=== PATIENT | female | born 1990 | race African-American/Black ===

== ENCOUNTER 2023-11-18 15:35 | Emergency (ER) | payer BC ==
[~2023-11-18] VITALS: Ht 160 cm; Wt 52.2 kg
[2023-11-18 15:35] VITALS: BP_SYST 108; PULSE 100; RESP 18; TEMP 99.3; O2SAT 99
[2023-11-18 16:45] LABS: BASOPHILS # (AUTO) 0.1 K/uL (0.0-0.2); BASOPHILS % (AUTO) 1.4 % (0.0-2.0); EOSINOPHILS # (AUTO) 0.2 K/uL (0.0-0.4); EOSINOPHILS % (AUTO) 3.8 % (0.0-4.0); HEMATOCRIT 23.2 % (36-48); HEMOGLOBIN 7.2 g/dL (12.0-16.0); LYMPHOCYTES # (AUTO) 2.4 K/uL (1.0-5.5); LYMPHOCYTES % (AUTO) 38.8 % (20.5-51.5); MEAN CORPUSCULAR HEMOGLOBIN 21 pg (27-31); MEAN CORPUSCULAR HGB CONC 31 % (32-36); MEAN CORPUSCULAR VOLUME 68 fL (79.0-98.0); MONOCYTES # (AUTO) 0.6 K/uL (0.0-1.0); MONOCYTES % (AUTO) 9.9 % (1.7-9.3); NEUTROPHILS # (AUTO) 2.9 K/uL (1.8-7.7); NEUTROPHILS % (AUTO) 46.1 % (40.0-70.0); PLATELET COUNT (AUTO) 312 K/uL (130-430); RED CELL DISTRIBUTION WIDTH 24.7 % (9.0-15.0); WHITE BLOOD COUNT (AUTO) 6.3 K/uL (4.8-10.8)
[2023-11-18 16:55] LABS: CALCIUM 8.3 mg/dL (8.4-11.0); CREATININE 0.99 mg/dL (0.55-1.30); POTASSIUM 4.1 mmol/L (3.5-5.1)
[2023-11-18 16:57] LABS: ANISOCYTOSIS 2+; HYPOCHROMASIA 1+; PROTHROMBIN TIME 10.1 SECS (9.5-12.5)
[2023-11-18 16:58] LABS: OVALOCYTES FEW; TARGET CELLS FEW
[2023-11-18] MEDS ORDERED: DIPHENHYDRAMINE HCL 50 MG CAPSULE PO ONE (17:30)
[2023-11-18] MEDS: DIPHENHYDRAMINE HCL 12.5 MG/5 ML UDC PO ONE (17:39)
[2023-11-18 18:13] VITALS: BP_SYST 108; PULSE 100; RESP 18; TEMP 99.3; O2SAT 99
== END 2023-11-18 18:13 | disposition left against medical advice (07) ==
LOC: SED 15:35
DX: D64.9 Anemia, unspecified (principal); N93.9 Abnormal uterine and vaginal bleeding, unspecified
CPT/HCPCS: 36415; 80048; 85025; 85610; 85730; 86886; 86900; 86901; 99284; Q0163